=== PATIENT | male | born 1970 | race Caucasian/White ===

== ENCOUNTER 2025-07-23 15:21 | Outpatient (CLI) | payer BC, SELFPAY ==
--- NOTE | 2025-07-23 15:26 | XR_ITS ---
WS: [id number] Left ankle, 3 views, 07/23/2025 Clinical Data: swelling of ankle Comparison: None. Findings: No fractures or dislocations are seen. The ankle mortise is normal. The talus and calcaneus are unremarkable. No soft tissue swelling over the medial or lateral malleolus is seen. XR/XR ankle LT min 3V* [id number] Impression: Negative left ankle.
== END 2025-07-23 15:22 | disposition home or self-care (01) ==
PROVIDERS: Visit Provider Nurse Practitioner
DX: M25.472 Effusion, left ankle (principal)
CPT/HCPCS: 73610